=== PATIENT | female | born 1965 | race Caucasian/White ===

== ENCOUNTER → 2024-06-02 | Outpatient (CLI) | payer MEDICAID, SELFPAY ==
--- NOTE | 2024-06-02 10:15 | XR_ITS ---
Examination: Lumbar spine, 5 views Technique: Lumbar spine AP, lateral, coned lateral lower lumbar spine, bilateral obliques 5 views Exam date and time: June 02, 2024 1041 hours INDICATIONS: Low back pain several years radiating down the right leg FINDINGS: Advanced diffuse facet arthropathy Diffuse moderate to advanced lumbar degenerative disc disease No lumbar fracture No spondylolisthesis IMPRESSION: Diffuse advanced lumbar degenerative disc disease, most severe L3-L4
== END | disposition home or self-care (01) ==
PROVIDERS: PCP Physician Assistant; Referring Provider Physician Assistant; Visit Provider Physician Assistant
DX: M51.369 Other intervertebral disc degeneration, lumbar region without mention of lumbar back pain or lower extremity pain (principal)
CPT/HCPCS: 72110

== ENCOUNTER 2024-09-07 20:11 | Emergency (ER) | payer MEDICAID, SELFPAY ==
[2024-09-07 20:12] VITALS: BMI 47.0
[2024-09-07 20:30] VITALS: BP 163/99; PULSE 99; RESP 20; TEMP 36.6; O2SAT 99
--- NOTE | 2024-09-07 20:40 | EDNOTE_ITS ---
ED Back Injury Pain RME/HPI General Chief Complaint: Back Pain/Injury Stated Complaint: BACK/ LEG PAIN X3DAYS Time Seen by Provider: 09/07/24 20:30 Arrival date/time: 09/07/24 20:11 59 year old female present to emergency room with ongoing low back and left knee for 3 days. history of OA. Pt denies any trauma or injury Denies new trauma No fevers No unexplained weight loss of night sweats No recent surgeries or recurrent bacterial infections No IVDU Patient is not immunocompromised Denies any new focal neurological deficits or new motor weakness Denies bowel or bladder incontinence or saddle anesthesia LOCATION:back, knee SEVERITY: Symptoms are described as being severe with limitations on activities of daily living QUALITY: Symptoms are described as being dull or achy CONTEXT: The patient is unable to identify any inciting events. DURATION/TIMING: The symptoms started approximately 3 day ago and have been constant this then. ASSOCIATED SYMPTOMS: The patient is unable to identify any other associated symptoms. MODIFYING FACTORS: The patient is unable to identify any alleviating or aggra vating symptoms. PERTINENT ROS: no fevers, no IVDU, denies any ripping or tearing sensations, no associated abdominal pain, no focal neurological deficits and denies any saddle anesthesia, and no bowel or bladder incontinence REVIEW OF SYSTEMS: See History of Present Illness - with the exception of those mentioned in the history of present illness, all other systems reviewed and reported as negative GENERAL: In general the patient is awake, interactive, in an emergency department rney. HEAD/EYES/EARS/NOSE/THROAT: normo-cephalic, atraumatic, mucus membranes are moist, anicteric, palpebral conjunctiva is pink, trachea is midline. CARDIOVASCULAR: regular rate and regular rhythm, no murmurs, heart sounds are not distant, strong pulses in all four extremities that are equal and symmetric bilateral upper and lower extremities, normal capillary refill. CHEST/PULMONARY: normal chest rise and fall, good air movement, clear to auscultation bilaterally, normal inspiratory to expiratory ratios without evidence of respiratory distress. NECK: No midline/Paraspinal tenderness, no step off ROM/Strenght intact No Kernig and bruzinski sign. No trauma ABDOMEN: soft, not tender, no masses appreciated BACK: lower paraspinal tenderness. no cva tenderness normal range of motion without pain. NEUROLOGICAL: cranio-facial features are symmetric, moves all four extremities equally without obvious limitations or weakness. EXTREMITY: no tenderness to palpation over the long bones or large joints of the bilateral upper and lower extremities, no joint swelling, no joint erythema, no signs of trauma, no unilateral leg swelling and no peripheral edema. SKIN: warm, dry, well-perfused, no jaundice, no rash, no telangiectasias or petechia. PSYCH: calm, cooperative, no evidence of psychosis or agitation Related Data Allergies Allergy/AdvReac Type Severity Reaction Status Date / Time No Known Allergies Allergy Verified 09/07/24 20:13 Course Quality Measures none Orders Category Date Time Status XR knee LT 3V Stat Exams 09/07/24 20:35 Ordered XR lumbar spine 2-3V Stat Exams 09/07/24 20:35 Ordered UA [Urinalysis] Stat Lab 09/07/24 20:36 Ordered Ketorolac Inj [Toradol Inj] Med 09/07/24 20:35 Discontinued 30 mg IM X1 ONE Vital Signs Vital signs: Vital Signs Temperature 97.9 F 09/07/24 20:30 Pulse Rate 99 09/07/24 20:30 Respiratory Rate 20 09/07/24 20:30 Blood Pressure 163/99 H 09/07/24 20:30 Pulse Oximetry (%) 99 09/07/24 20:30 Oxygen Delivery Method Room Air 09/07/24 20:30 Back Pain / Injury Patient data External records reviewed:: [facility] previous records Clinical information provided by:: patient Social determinants that could affect healthcare access:: none Patient has the following chronic illnesses:: oa, chronic back, knee pain How is presenting disease/condition affected by chronic disease/condition?: exacerbated by Evaluation data The following diagnostics were reviewed and interpreted by me:: lab results and radiology exam(s) Lab and/or radiology exams considered but not ordered:: n/a Interpretation Summary: eloped Medications / Prescriptions Medications or Prescriptions considered but not ordered:: n/a Medication administrations:: Medication Administration History Discontinued Medications Ketorolac Tromethamine (Ketorolac Inj 60 Mg/2 Ml Vial) 30 mg IM X1 ONE Stop: 09/07/24 20:36 eloped Consultations Consultation(s) initiated? (list below): No Diagnosis Most likely diagnosis given after review of the tests above:: back pain Admission Indicated Admission indicated?: not indicated Admission Request Was there a request for admission?: No Disposition Plan Disposition Plan: other (specify) (eloped ) Discharge Plan Plan Patient Disposition: Elopement Prescriptions/Referrals Referrals: Temporary Provider,ED [Primary Care Provider] - In 1 week Problem List Clinical Impression: Back pain Patient/Caregiver Discharge Instructions Print Language: Yoruba
--- NOTE | 2024-09-07 20:54 | PC.NURSE ---
Pt was put in RP to wait for medication. Pt was seen then getting up and walking out.
--- NOTE | 2024-09-07 21:53 | PC.NURSE ---
PT WAS SEEN WALKING OUT OF ER PER SECURITY CALLED N/A 2099, 2129, 2152.
== END 2024-09-07 21:54 | disposition left against medical advice (07) ==
PROVIDERS: Emergency Provider Emergency Medicine
DX: M54.50 Low back pain, unspecified (principal); G89.29 Other chronic pain; M19.90 Unspecified osteoarthritis, unspecified site; Z53.29 Procedure and treatment not carried out because of patient's decision for other reasons
CPT/HCPCS: 81001; 99281

== ENCOUNTER 2024-09-29 09:00 | Outpatient (RCR) | payer MEDICAID, SELFPAY ==
--- NOTE | 2024-09-29 09:44 | PT.OIERPT ---
PT OP Initial Eval Patient Information Outpatient Physical Therapy Treatment Date: 09/29/24 Visit Reasons: lumbago with sciatica right side Medical Diagnosis: M54.41 Start of Care: 09/29/24 Date of Onset: 20 yrs ago Smoking Status Smoking Status: Light (< 1 pack/day) Cessation Counseling Provided: SOFI was advised that quitting smoking is the single most important factor to protect the health of themselves and their family. Discussed the benefits of quitting smoking with patient. Encouraged patient to quit smoking and provided Cessation assistance materials and resources. Tobacco Use: Cigarette Years smoked: 30 Are you interested in quitting?: Yes Would you like additional Smoking Cessation Counseling?: No Initial Assessment Subjective: Pt is 59 yr old female who reports long Hx of LBP that radiates down the LE's R>L. Pt feels limited with standing >20 mins and bending and lifting groceries. She tries to take dog for a walk for about 15 mins with pain and she takes rest breaks. PMH: HTN, COPD, hysterectomy, smoker, obesity Imaging: Xrays of L/S Diffuse advanced lumbar degenerative disc disease, most severe L3-L4 Pt goal: not sure Objective: ?Trunk ArOM: ? B SB 50% of normal with pain to the R ? Extension: 20% with pain around L4-5, L5-S1 ? Flexion: 13 from floor with LBP ? B rotation: 60% with pain to the R ? TTP: moderate paraspinals L5-S1 ? Neuro: R SLR: positive Assessment: Pt presents with limited trunk AROM with high tissue irritability consistent with Xray of L/S that reveals advanced DDD. Pt is not likely going to benefit from skilled therapy and has poor rehab potential to meet goals and will likely have more LBP with therapy. PT recommends further diagnostic imaging of L/S such as MRI. Gave pt HEP with printout. Short Term and Service Advocate Contact Goals Eval and D/C Treatment Plan Eval and D/C Certification Dates: 09/29/24-10/31/24 Procedure Charges OP PT Eval Mod Complex 30 minutes: Yes
== END 2024-10-24 23:59 | disposition home or self-care (01) ==
LOC: CPTX 09:00
PROVIDERS: PCP Physician Assistant; Referring Provider Physician Assistant; Visit Provider Physician Assistant
DX: M54.41 Lumbago with sciatica, right side (principal); Z71.6 Tobacco abuse counseling; F17.210 Nicotine dependence, cigarettes, uncomplicated; I10 Essential (primary) hypertension
CPT/HCPCS: 97162

== ENCOUNTER → 2025-02-02 | Outpatient (CLI) | payer MEDICAID, SELFPAY ==
--- NOTE | 2025-02-02 10:30 | XR_ITS ---
Examination: MRI lumbar spine without contrast Date and time of exam: February 02, 2025 1052 hours INDICATIONS: Low back pain 20 years radiating to the right leg getting worse Technique: Multiple MRI axial and sagittal sections lumbar spine. Sagittal T2-weighted images, TR 3500, TE 118 T1 weighted transverse sections, TR 688 T8.5, T2-weighted sagittal sections T1 weighted sagittal sections TR 621, TE 30 T2 axial sections, TR 4, 190, TE 84. Findings: Adequate alignment lumbar vertebral bodies Heterogeneous marrow signal. Advanced disc narrowing L3-L4, L5-S1 No spondylolisthesis L5-S1 4 mm central paracentral disc bulge extending to the foraminal regions with mild right L5 ganglionic compression L4-L5 6 mm central lumbar disc bulge extending to the left foraminal region with mild left L4 ganglionic compression No focal disc protrusions upper lumbar levels IMPRESSION: L5-S1 4 mm central paracentral disc bulge extending to the right foramen with mild right L5 ganglionic compression L4-L5 6 mm central lumbar disc bulge extending to the left foraminal region with mild left L4 ganglionic compression
== END | disposition home or self-care (01) ==
LOC: SMRI 09:54
PROVIDERS: PCP Physician Assistant; Referring Provider Physician Assistant; Visit Provider Physician Assistant
DX: G95.20 Unspecified cord compression (principal)
CPT/HCPCS: 72148